=== PATIENT | female | born 2000 | race Caucasian/White ===

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

== ENCOUNTER 2022-06-20 13:56 | Emergency (ER) | payer OTHER, SELFPAY ==
[2022-06-20 15:31] VITALS: BP 123/64; PULSE 96; RESP 16; TEMP 37.9; O2SAT 100; BMI 30.7
[2022-06-20 16:02] LABS: IDNOW Serial# 6674DD1D; Strep A Nucleic Acid Negative (Negative)
[2022-06-20 16:28] LABS: Influenza A PCR NEGATIVE (Negative); Influenza B PCR NEGATIVE (Negative); Resp Syncy Virus RNA Qual PCR NEGATIVE (Negative); SARS COV2 PCR INHOUSE NEGATIVE (Negative)
--- NOTE | 2022-06-20 16:29 | ED.URI ---
HPI - URI/Sore Throat General Chief Complaint: Upper Respiratory Symptoms Stated Complaint: sore throat pain going into ear Time Seen by Provider: 06/20/22 16:01 Source: patient and family Mode of arrival: ambulatory Limitations: no limitations History of Present Illness HPI Narrative: 22-year-old female who is currently 5 weeks who reports she is going to follow up with OB in the next week with presenting to the ER with complaints of subjective fevers, chills, fatigue, malaise, ear pain, sore throat with a nonproductive cough for the past 2-3 days worse today. She denies recent travel or sick contacts. She denies any measured fevers at home, dizziness, headaches, neck pain/stiffness, trouble swallowing or breathing, chest pain or shortness of breath, dyspnea on exertion, orthopnea, palpitations, paresthesias, nausea/vomiting/diarrhea constipation, black or bloody stools, abdominal pain, flank pain, dysuria, hematuria, abnormal vaginal discharge, vaginal bleeding, rashes, recent falls or trauma or any other symptoms complaints or concerns at this time. MD elicited complaint: fever, cough, sore throat, rhinorrhea and nasal congestion Onset (ago): day(s) (2-3 days ) Consistency: constant Severity: mild Description of mucous: clear, watery and yellow Able to tolerate fluids by mouth: Yes Exacerbating factors: swallowing Relieving factors: nothing Associated symptoms: fever, chills, myalgias, rhinorrhea, nasal congestion, sore throat and cough Treatments prior to arrival: none Related Data Home Medications Medication Instructions Recorded Confirmed vit no.95-ferrous 1 tab PO DAILY 11/07/21 fumarate 28 mg-folic acid 800 mcg tablet () Previous Rx's Medication Instructions Recorded nitrofurantoin 100 mg PO BID 5 days #10 caps 11/20/21 monohydrate/macrocrystals 100 mg capsule (Macrobid) amoxicillin 875 mg-potassium 1 tab PO BID 10 days #20 tabs 06/20/22 clavulanate 125 mg tablet Allergies Allergy/AdvReac Type Severity Reaction Status Date / Time montelukast [From [facility]] Allergy Intermediate PALPITAITIONS, Verified 11/07/21 11:26 HALLUCINATES Review of Systems Review of Systems: Constitutional : + fever/chills/fatigue/malaise, No Weight loss, No Night Sweats ENT/Mouth : No Hearing loss, + Ear Pain, + Nasal Congestion, No Sinus Pain, No Hoarseness, + sore throat, + Rhinorrhea, No Swallowing Difficulty Eyes: No Eye Pain, No Swelling, No Redness, No Foreign Body, No Discharge, No Vision Changes Cardiovascular : No Chest Pain, No SOB, No Dyspnea on Exertion, No Orthopnea, No Edema, No Palpitations Respiratory : + Cough, No Sputum, No Wheezing, No Smoke Exposure, No Dyspnea Gastrointestinal : No Nausea, No Vomiting, No Diarrhea, No Constipation, No abdominal Pain, No Hematochezia, No Melena Genitourinary : no irregular bleeding, No Dysuria, No Urinary Frequency, No Hematuria, No Urinary Incontinence, No Urgency, No Flank Pain, No Urinary Flow Changes, No Hesitancy Musculoskeletal : No joint pain, + Myalgias, No Joint Swelling Skin : No Skin Lesions, No rash Neuro : No Weakness, No Numbness, No Paresthesias, No Loss of Consciousness, No Dizziness, No Headache Psych : No Anxiety/Panic, No Depression, No SI/HI/AH/VH, No Social Issues, Heme/Lymph: No Bruising, No Bleeding,No Lymphadenopathy Endocrine : No Polyuria, No Polydipsia, No Temperature Intolerance Yes all other systems are reviewed and are negative [facility] Past Medical History Attestation statement: The following information was validated with the patient. Source: old records reviewed, obtained from family and nursing notes reviewed Medical History Asthma Depression with anxiety PTSD (post-traumatic stress disorder) Surgical History History of hip surgery Social History Social History Alcohol intake: never Patient Tobacco Use Status: Current everyday Tobacco user Substance Use Type: Marijuana Advance Directives: No Advance Directives Information Provided: No Sexual orientation: Straight/Heterosexual Gender identity: Female Physical Exam Vital Signs: Vital Signs: Last Vital Signs Temp 100.3 F 06/20/22 15:31 Pulse 96 06/20/22 15:31 Resp 16 06/20/22 15:31 BP 123/64 06/20/22 15:31 Pulse Ox 100 06/20/22 15:31 O2 Del Method 06/20/22 15:31 BMI result Body Mass Index 30.7 Vital signs reviewed. Blood pressure normal. Pulse normal. Respiration normal. Oxygen normal. Temperature 100.3 Appearance: Alert. Oriented X3. No acute distress. Head: Normal external exam. Normocephalic. Atraumatic. Eyes: PERRLA. EOMI. Conjunctiva and sclera normal. Eyelids normal. ENT: EAC normal. TM's Normal. Soft and hard palate within normal limits. Posterior pharynx/tonsils erythematous no obvious exudate is noted. Uvula midline. Moist mucous membranes. No lesions/ulcerations or masses noted on the tongue. Normal voice. No trismus noted. No drooling noted. No muffled voice noted. Neck: Normal inspection. Neck supple. FROM. + anterior cervical adenopathy. Thyroid Normal. No meningeal signs. CVS: Normal heart rate and rhythm. Heart sound normal. Pulses normal throughout. No murmurs/rales/gallops. Respiratory: No respiratory distress. Painless inspiration. Breath sounds normal. No wheezes/rales/rhonchi noted. Chest nontender. No accessory muscle usage noted or decreased air movement noted. Abdomen: Soft and nontender. Back: Full range of motion noted. Nontender. Skin: Skin warm and dry. Normal skin color. Normal skin turgor. No rashes/lesions/lacerations noted. Extremities: Extremities exhibit normal range of motion and nontender. Neuro: Oriented X 3. No motor deficit. No sensory deficit. Reflexes normal. Normal steady gait. No focal neuro deficits noted. CN's II-XII intact bilaterally? Vascular: + radial pulses. Normal cap refill. No cyanosis noted to upper extremity nails Course Course Course Narrative: 22-year-old female who is currently 5 weeks who reports she is going to follow up with OB in the next week with presenting to the ER with complaints of subjective fevers, chills, fatigue, malaise, ear pain, sore throat with a nonproductive cough for the past 2-3 days worse today. This patient presents with acute cough, most consistent with pharyngitis. Differential diagnosis includes influenza/COVID or otitis media. Presentation not consistent with acute bacterial pneumonia, asthma, transient airway hyperresponsiveness. Presentation not consistent with chronic causes of cough (including GERD, asthma, postnasal discharge, medication side effect, CHF, lung cancer or mass). Patient negative for pharyngitis. Although on exam patient is febrile and having sore throat therefore will treat for bacterial pharyngitis. If patient negative for COVID/RSV/flu she can be discharged instructions follow up with her PCP. Patient understands agrees with this plan. Medications Administered Discontinued Medications Generic Name Dose Route Start Last Admin Trade Name Freq PRN Reason Stop Dose Admin Acetaminophen 975 mg 06/20/22 16:28 06/20/22 16:45 Acetaminophen 325 Mg Tablet PO 06/20/22 16:29 975 mg ONCE ONE Administration Medical Decision Making Lab Data MDM Lab Attestation statement: I reviewed the patient's lab results. Labs: Lab Results 06/20/22 06/20/22 Range/Units 15:45 15:45 Influenza Type A (PCR) NEGATIVE (Negative) Influenza Type B (PCR) NEGATIVE (Negative) RSV RNA Qual (PCR) NEGATIVE (Negative) SARS-CoV-2 RNA (RT-PCR) NEGATIVE (Negative) S. pyogenes GrpA JAMEL Negative (Negative) Independent Historian Clinical information obtained from an independent historian. History obtained from or confirmed by: Friend External Record Review External record reviewed: Inpatient record, Office record, Outpatient record, Prior outpatient labs, Prior outpatient radiology, Primary care record and Outside ED record Discharge Plan Discharge Clinical Impression: Acute bacterial pharyngitis Patient Disposition: Home, Self-Care Instructions: Pharyngitis (ED) Additional Instructions: You have pending COVID/RSV/flu swab. If it is positive you will be contacted today. Prescriptions: New amoxicillin-pot clavulanate 875-125 mg tablet 1 tab PO BID 10 Days Qty: 20 0RF No Action nitrofurantoin monohyd/m-cryst [Macrobid] 100 mg capsule 100 mg PO BID 5 Days Qty: 10 0RF PNV cmb#95-ferrous fumarate-FA [] 28 mg iron- 800 mcg tablet 1 tab PO DAILY Referrals: Radha Owen MD [Primary Care Provider] - 2 days Stand Alone Forms: Work/School Release Interventions: ED Discharge Assessment Last Done: 06/20/22 17:22 Discharge Date/Time: 06/20/22 17:22
[2022-06-20] MEDS: Acetaminophen 325 MG TABLET 975 MG PO (16:45)
== END 2022-06-20 17:22 | disposition home or self-care (01) ==
PROVIDERS: Emergency Provider Emergency Medicine Emergency Medical Services; PCP Internal Medicine
DX: J02.9 Acute pharyngitis, unspecified (principal); M79.10 Myalgia, unspecified site; R50.9 Fever, unspecified; F17.210 Nicotine dependence, cigarettes, uncomplicated; Z20.822 Contact with and (suspected) exposure to COVID-19; Z71.6 Tobacco abuse counseling; Z79.899 Other long term (current) drug therapy
CPT/HCPCS: 0241U; 87651; 99283

== ENCOUNTER 2022-06-23 14:00 | Emergency (ER) | payer MEDICAID, SELFPAY ==
[2022-06-23 14:07] VITALS: BP 122/77; PULSE 111; RESP 16; TEMP 37.1; O2SAT 100; BMI 30.7
--- NOTE | 2022-06-23 14:08 | ED_ITS ---
HPI - Fever General Chief Complaint: Fever <MANUEL Siddiqui - Last Filed: 06/23/22 14:13> Stated Complaint: returning for worsening symptoms, fever <MANUEL Siddiqui - Last Filed: 06/23/22 14:13> Time Seen by Provider: 06/23/22 17:15 <MANUEL Siddiqui - Last Filed: 06/23/22 14:13> Source: patient and family <Brenda Fong NP - Last Filed: 06/23/22 18:57> Mode of arrival: ambulatory <Brenda Fong NP - Last Filed: 06/23/22 18:57> Limitations: no limitations <Brenda Fong NP - Last Filed: 06/23/22 18:57> History of Present Illness HPI Narrative: 22-year-old female recently diagnosed as , 5 weeks, presents to the emergency department with her mother for complaints of fevers, cough and sore throat. She was seen 3 days ago here in the emergency department and diagnosed with acute bacterial pharyngitis and discharged home with antibiotics. She states she has continued to have fevers over the last 3 days with T-max 103.8?, managed with Tylenol at home with good result. She is concerned that the antibiotics are not working. She reports intermittent nausea and vomiting which he attributes to being newly . She denies any shortness of breath, chest pain, chills, weakness, headache, or vision changes. <Brenda Fong NP - Last Filed: 06/23/22 18:57> Onset (ago): day(s) <Brenad Fong NP - Last Filed: 06/23/22 18:57> Exacerbating factors: nothing <Brenda Fong NP - Last Filed: 06/23/22 18:57> Relieving factors: acetaminophen <Brenda Fong NP - Last Filed: 06/23/22 18:57> Associated symptoms: denies other symptoms <Brenda Fong NP - Last Filed: 06/23/22 18:57> Treatments prior to arrival fever: acetaminophen <Brenda Fong NP - Last Filed: 06/23/22 18:57> Related Data Home Medications: Home Medications Medication Instructions Recorded Confirmed vit no.95-ferrous 1 tab PO DAILY 11/07/21 fumarate 28 mg-folic acid 800 mcg tablet () Previous Rx's Medication Instructions Recorded nitrofurantoin 100 mg PO BID 5 days #10 caps 11/20/21 monohydrate/macrocrystals 100 mg capsule (Macrobid) amoxicillin 875 mg-potassium 1 tab PO BID 10 days #20 tabs 06/20/22 clavulanate 125 mg tablet <MANUEL Siddiqui - Last Filed: 06/23/22 14:13> Allergies/Adverse Reactions: Allergies Allergy/AdvReac Type Severity Reaction Status Date / Time montelukast [From SINGULAIR] Allergy Intermediate PALPITAITIONS, Verified 11/07/21 11:26 HALLUCINATES <MANUEL Siddiqui - Last Filed: 06/23/22 14:13> Review of Systems Review of Systems: In addition to documented HPI above, the additional ROS was obtained: Constitutional: No Weight loss, No Fever, No Chills ENT/Mouth: No Ear Pain, No Nasal Congestion, No Sinus Pain, No Hoarseness No Rhinorrhea, No Swallowing Difficulty Cardiovascular: No Chest Pain, No SOB Respiratory: No Cough, No Sputum, No Wheezing Gastrointestinal: No Nausea, No Vomiting, No Diarrhea, No Constipation, No Abdominal pain Genitourinary: No Dysuria, No Urinary Frequency, No Hematuria, No Urinary Incontinence/retention, No Urgency, No Flank Pain Musculoskeletal: No joint pain, No Myalgias, No Joint Swelling Skin: No Skin Lesions, No rash Neuro: No Weakness, No Numbness, No Paresthesias <Brenda Fong NP - Last Filed: 06/23/22 18:57> Yes all other systems are reviewed and are negative <Brenda Fong NP - Last Filed: 06/23/22 18:57> [facility] Past Medical History Attestation statement: The following information was validated with the patient. <Brenda Fong NP - Last Filed: 06/23/22 18:57> Source: old records reviewed and obtained from family <FLOR Henriquez Last Filed: 06/23/22 18:57> Medical History: Medical History Asthma Depression with anxiety PTSD (post-traumatic stress disorder) <MANUEL Siddiqui - Last Filed: 06/23/22 14:13> Surgical History: Surgical History History of hip surgery <MANUEL Siddiqui - Last Filed: 06/23/22 14:13> Social History Social History: Social History Alcohol intake: never Patient Tobacco Use Status: Current everyday Tobacco user Substance Use Type: Marijuana Advance Directives: No Advance Directives Information Provided: No Sexual orientation: Straight/Heterosexual Gender identity: Female <MANUEL Siddiqui - Last Filed: 06/23/22 14:13> Physical Exam Vital Signs: Vital Signs: Last Vital Signs Temp 97.4 F 06/23/22 17:12 Pulse 105 H 06/23/22 17:12 Resp 18 06/23/22 17:12 BP 133/55 L 06/23/22 17:12 Pulse Ox 96 06/23/22 17:12 O2 Del Method 06/23/22 17:12 BMI result Body Mass Index 30.7 <MANUEL Siddiqui - Last Filed: 06/23/22 14:13> Vital Signs: Last Vital Signs Temp 97.4 F 06/23/22 17:12 Pulse 105 H 06/23/22 17:12 Resp 18 06/23/22 17:12 BP 133/55 L 06/23/22 17:12 Pulse Ox 96 06/23/22 17:12 O2 Del Method 06/23/22 17:12 BMI result Body Mass Index 30.7 <Brenda Fong NP - Last Filed: 06/23/22 18:57> Nursing notes and vital signs reviewed. GENERAL APPEARANCE: A&0 x 4, generally well appearing, no acute distress HENMT: Normal to inspection, atraumatic, face symmetrical. Normal external ears, nose, and oropharynx clear. EYE: PERRLA, EOM intact, structures appear normal NECK: Supple without lymphadenopathy. No stiffness or restricted ROM. CHEST: Normal to inspection HEART: Normal rate and regular rhythm, normal S1/S2, no M/R/G LUNGS: LS CTA, moving air well. Able to speak in complete sentences. No crackles, wheezes, or rhonchi auscultated ABDOMEN: Soft, nontender, nondistended. Normal bowel sounds noted BACK: No CVAT, no obvious deformity EXTREMITIES: Moving all extremities without difficulty. No cyanosis, clubbing, or edema. Normal capillary refill. NEUROLOGICAL: Alert and oriented, moving all 4 extremities with equal strength. CN not formally tested but appearing grossly intact. Observed to ambulate with normal gait. Cognition normal SKIN: Warm and dry without any lesions, rash, or visible sores PSYCH: Cooperative, normal affect, normal thought process <Brenda Fong NP - Last Filed: 06/23/22 18:57> Course Course Course Narrative: RME-14:15pm 22yoF who is 5 weeks who is presenting to the ED c c/o Fevers up to 101.0, headaches, nasal congestion and cough x 1 week. Taking otc tylenol for her fevers. Reports associated N/V. On medications for yeast infection given by [facility]. On amoxicillin for bacterial pharyngitis x 3 days. Denies any abd pain, CP, SOB, diarrhea, dysuria, vaginal bleeding or any OBGYN related complaints or any other symptoms complaints or concerns at this time. Plan: COVID/RSV/flu, UA. Patient will be sent back to the waiting room to be evaluated [facility]. <MANUEL Siddiqui - Last Filed: 06/23/22 14:13> Medical Decision Making Medical Decision Making MDM Narrative: 22-year-old female recently diagnosed as , 5 weeks, presents to the emergency department with her mother for complaints of fevers, cough and sore throat. She was seen 3 days ago here in the emergency department and diagnosed with acute bacterial pharyngitis and discharged home with antibiotics. She states she has continued to have fevers over the last 3 days with T-max 103.8?, managed with Tylenol at home with good result. Serology negative for influenza, RSV, COVID, and mono. Urine negative for infection. Blood work unremarkable. Chest x-ray recommended and patient declined due to new and history of miscarriage. History and physical exam consistent with acute viral upper respiratory infection. Patient is a for discharge at this time with recommendation to manage temperature and discomfort with [id number] Tylenol with dosing per packaging. HPI, PE, diagnostics, and plan discussed with patient and family with no unanswered questions at this time. Patient educated to return to the emergency department with new, worsening, or concerning emergent symptoms. Recommended to follow-up with her primary care provider for further treatment and management. *Refer to Course for additional information on consultations, diagnostic interpretation, consultations, emergency department stay, conversations with patient and family, shared decision making with patient, and more information on medical decision making* <Brenda Fong NP - Last Filed: 06/23/22 18:57> Lab Data Result Diagrams: 06/23/22 17:45 06/23/22 17:46 <MANUEL Siddiqui - Last Filed: 06/23/22 14:13> Labs: Lab Results 06/23/22 06/23/22 06/23/22 Range/Units 16:00 16:00 17:45 WBC 17.4 H (4.8-10.8) X10*3/uL RBC 4.34 (4.20-5.50) X10*6/uL Hgb 12.3 (12.0-16.0) g/dl Hct 37.7 (37.0-47.0) % MCV 86.9 (80.0-98.0) fL MCH 28.3 (27.0-33.0) pg MCHC 32.6 (31.0-35.0) g/dl RDW 13.1 (11.0-16.0) % Plt Count 327 (160-400) X10*3/uL MPV 10.4 (9.4-12.3) fL Immature Gran % (Auto) 0.4 (0.0-0.4) % Neut % (Auto) 78.5 H (45-73) % Lymph % (Auto) 15.6 L (20-40) % [place] % (Auto) 5.1 (2-11) % Eos % (Auto) 0.2 (0-4) % Baso % (Auto) 0.2 (0-2) % Lymph # (Auto) 2.7 (1.2-4.9) X10*3/uL [place] # (Auto) 0.9 (0.1-1.2) X10*3/uL Eos # (Auto) 0.0 (0.0-0.4) X10*3/uL Baso # (Auto) 0.0 (0.0-0.2) X10*3/uL Abs Immat Gran (auto) 0.07 H (0.00-0.03) X10*3/uL Absolute Neuts (auto) 13.7 H (2.0-8.3) x10*3/uL Absolute Nucleated RBC 0.000 (0.0-0.012) X10*3/uL Nucleated RBC % (auto) 0.0 (0.0-0.2) /100WBC Sodium (135-145) mmol/L Potassium (3.3-5.1) mmol/L Chloride (96-108) mmol/L Carbon Dioxide (22-29) mmol/L Anion Gap (12-20) BUN (9-16) mg/dL Creatinine (0.5-1.4) mg/dL Estim Creat Clear Calc Estimated GFR Random Glucose (60-115) mg/dL Calcium (8.4-10.2) mg/dL Magnesium (1.6-2.6) mg/dL Total Bilirubin (0.0-1.0) mg/dL AST (5-31) U/L ALT (0-31) U/L Alkaline Phosphatase (39-117) U/L Total Protein (6.5-8.0) g/dL Albumin (3.5-5.0) g/dL Beta HCG, Quant mIU/mL Urine Color Yellow Urine Appearance Clear Urine pH 6.5 (5.0-9.0) Ur Specific [place] 1.025 (1.005-1.025) Urine Protein 30 (1+) H (Neg-Trace) mg/dL Urine Glucose (UA) Negative (Negative) mg/dL Urine Ketones 15 (Negative) mg/dL Urine Blood Negative (Negative) Urine Nitrite Negative (Negative) Ur Leukocyte Esterase Negative (Negative) Urine RBC 0-2 (0-2) /HPF Urine WBC 0-5 (0-5) /HPF Ur Squamous Epith Cells 6-10 (0-2) /HPF Urine Bacteria None Seen (None Seen) Hyaline Casts 0-2 (0-2) /LPF Monoscreen (Negative) Influenza Type A (PCR) NEGATIVE (Negative) Influenza Type B (PCR) NEGATIVE (Negative) RSV RNA Qual (PCR) NEGATIVE (Negative) SARS-CoV-2 RNA (RT-PCR) NEGATIVE (Negative) 06/23/22 06/23/22 06/23/22 Range/Units 17:46 17:46 17:46 WBC (4.8-10.8) X10*3/uL RBC (4.20-5.50) X10*6/uL Hgb (12.0-16.0) g/dl Hct (37.0-47.0) % MCV (80.0-98.0) fL MCH (27.0-33.0) pg MCHC (31.0-35.0) g/dl RDW (11.0-16.0) % Plt Count (160-400) X10*3/uL MPV (9.4-12.3) fL Immature Gran % (Auto) (0.0-0.4) % Neut % (Auto) (45-73) % Lymph % (Auto) (20-40) % [place] % (Auto) (2-11) % Eos % (Auto) (0-4) % Baso % (Auto) (0-2) % Lymph # (Auto) (1.2-4.9) X10*3/uL [place] # (Auto) (0.1-1.2) X10*3/uL Eos # (Auto) (0.0-0.4) X10*3/uL Baso # (Auto) (0.0-0.2) X10*3/uL Abs Immat Gran (auto) (0.00-0.03) X10*3/uL Absolute Neuts (auto) (2.0-8.3) x10*3/uL Absolute Nucleated RBC (0.0-0.012) X10*3/uL Nucleated RBC % (auto) (0.0-0.2) /100WBC Sodium 138 (135-145) mmol/L Potassium 3.5 (3.3-5.1) mmol/L Chloride 105 (96-108) mmol/L Carbon Dioxide 23 (22-29) mmol/L Anion Gap 14 (12-20) BUN 7 L (9-16) mg/dL Creatinine 0.80 (0.5-1.4) mg/dL Estim Creat Clear Calc 124.0 Estimated GFR > 60 Random Glucose 111 (60-115) mg/dL Calcium 8.9 (8.4-10.2) mg/dL Magnesium 2.0 (1.6-2.6) mg/dL Total Bilirubin 0.3 (0.0-1.0) mg/dL AST 15 (5-31) U/L ALT 16 (0-31) U/L Alkaline Phosphatase 72 (39-117) U/L Total Protein 7.4 (6.5-8.0) g/dL Albumin 3.9 (3.5-5.0) g/dL Beta HCG, Quant 1678 mIU/mL Urine Color Urine Appearance Urine pH (5.0-9.0) Ur Specific [place] (1.005-1.025) Urine Protein (Neg-Trace) mg/dL Urine Glucose (UA) (Negative) mg/dL Urine Ketones (Negative) mg/dL Urine Blood (Negative) Urine Nitrite (Negative) Ur Leukocyte Esterase (Negative) Urine RBC (0-2) /HPF Urine WBC (0-5) /HPF Ur Squamous Epith Cells (0-2) /HPF Urine Bacteria (None Seen) Hyaline Casts (0-2) /LPF Monoscreen Negative (Negative) Influenza Type A (PCR) (Negative) Influenza Type B (PCR) (Negative) RSV RNA Qual (PCR) (Negative) SARS-CoV-2 RNA (RT-PCR) (Negative) <MANUEL Siddiqui - Last Filed: 06/23/22 14:13> Lab Results 06/23/22 06/23/22 06/23/22 Range/Units 16:00 16:00 17:45 WBC 17.4 H (4.8-10.8) X10*3/uL RBC 4.34 (4.20-5.50) X10*6/uL Hgb 12.3 (12.0-16.0) g/dl Hct 37.7 (37.0-47.0) % MCV 86.9 (80.0-98.0) fL MCH 28.3 (27.0-33.0) pg MCHC 32.6 (31.0-35.0) g/dl RDW 13.1 (11.0-16.0) % Plt Count 327 (160-400) X10*3/uL MPV 10.4 (9.4-12.3) fL Immature Gran % (Auto) 0.4 (0.0-0.4) % Neut % (Auto) 78.5 H (45-73) % Lymph % (Auto) 15.6 L (20-40) % [place] % (Auto) 5.1 (2-11) % Eos % (Auto) 0.2 (0-4) % Baso % (Auto) 0.2 (0-2) % Lymph # (Auto) 2.7 (1.2-4.9) X10*3/uL [place] # (Auto) 0.9 (0.1-1.2) X10*3/uL Eos # (Auto) 0.0 (0.0-0.4) X10*3/uL Baso # (Auto) 0.0 (0.0-0.2) X10*3/uL Abs Immat Gran (auto) 0.07 H (0.00-0.03) X10*3/uL Absolute Neuts (auto) 13.7 H (2.0-8.3) x10*3/uL Absolute Nucleated RBC 0.000 (0.0-0.012) X10*3/uL Nucleated RBC % (auto) 0.0 (0.0-0.2) /100WBC Sodium (135-145) mmol/L Potassium (3.3-5.1) mmol/L Chloride (96-108) mmol/L Carbon Dioxide (22-29) mmol/L Anion Gap (12-20) BUN (9-16) mg/dL Creatinine (0.5-1.4) mg/dL Estim Creat Clear Calc Estimated GFR Random Glucose (60-115) mg/dL Calcium (8.4-10.2) mg/dL Magnesium (1.6-2.6) mg/dL Total Bilirubin (0.0-1.0) mg/dL AST (5-31) U/L ALT (0-31) U/L Alkaline Phosphatase (39-117) U/L Total Protein (6.5-8.0) g/dL Albumin (3.5-5.0) g/dL Beta HCG, Quant mIU/mL Urine Color Yellow Urine Appearance Clear Urine pH 6.5 (5.0-9.0) Ur Specific [place] 1.025 (1.005-1.025) Urine Protein 30 (1+) H (Neg-Trace) mg/dL Urine Glucose (UA) Negative (Negative) mg/dL Urine Ketones 15 (Negative) mg/dL Urine Blood Negative (Negative) Urine Nitrite Negative (Negative) Ur Leukocyte Esterase Negative (Negative) Urine RBC 0-2 (0-2) /HPF Urine WBC 0-5 (0-5) /HPF Ur Squamous Epith Cells 6-10 (0-2) /HPF Urine Bacteria None Seen (None Seen) Hyaline Casts 0-2 (0-2) /LPF Monoscreen (Negative) Influenza Type A (PCR) NEGATIVE (Negative) Influenza Type B (PCR) NEGATIVE (Negative) RSV RNA Qual (PCR) NEGATIVE (Negative) SARS-CoV-2 RNA (RT-PCR) NEGATIVE (Negative) 06/23/22 06/23/22 06/23/22 Range/Units 17:46 17:46 17:46 WBC (4.8-10.8) X10*3/uL RBC (4.20-5.50) X10*6/uL Hgb (12.0-16.0) g/dl Hct (37.0-47.0) % MCV (80.0-98.0) fL MCH (27.0-33.0) pg MCHC (31.0-35.0) g/dl RDW (11.0-16.0) % Plt Count (160-400) X10*3/uL MPV (9.4-12.3) fL Immature Gran % (Auto) (0.0-0.4) % Neut % (Auto) (45-73) % Lymph % (Auto) (20-40) % [place] % (Auto) (2-11) % Eos % (Auto) (0-4) % Baso % (Auto) (0-2) % Lymph # (Auto) (1.2-4.9) X10*3/uL [place] # (Auto) (0.1-1.2) X10*3/uL Eos # (Auto) (0.0-0.4) X10*3/uL Baso # (Auto) (0.0-0.2) X10*3/uL Abs Immat Gran (auto) (0.00-0.03) X10*3/uL Absolute Neuts (auto) (2.0-8.3) x10*3/uL Absolute Nucleated RBC (0.0-0.012) X10*3/uL Nucleated RBC % (auto) (0.0-0.2) /100WBC Sodium 138 (135-145) mmol/L Potassium 3.5 (3.3-5.1) mmol/L Chloride 105 (96-108) mmol/L Carbon Dioxide 23 (22-29) mmol/L Anion Gap 14 (12-20) BUN 7 L (9-16) mg/dL Creatinine 0.80 (0.5-1.4) mg/dL Estim Creat Clear Calc 124.0 Estimated GFR > 60 Random Glucose 111 (60-115) mg/dL Calcium 8.9 (8.4-10.2) mg/dL Magnesium 2.0 (1.6-2.6) mg/dL Total Bilirubin 0.3 (0.0-1.0) mg/dL AST 15 (5-31) U/L ALT 16 (0-31) U/L Alkaline Phosphatase 72 (39-117) U/L Total Protein 7.4 (6.5-8.0) g/dL Albumin 3.9 (3.5-5.0) g/dL Beta HCG, Quant 1678 mIU/mL Urine Color Urine Appearance Urine pH (5.0-9.0) Ur Specific [place] (1.005-1.025) Urine Protein (Neg-Trace) mg/dL Urine Glucose (UA) (Negative) mg/dL Urine Ketones (Negative) mg/dL Urine Blood (Negative) Urine Nitrite (Negative) Ur Leukocyte Esterase (Negative) Urine RBC (0-2) /HPF Urine WBC (0-5) /HPF Ur Squamous Epith Cells (0-2) /HPF Urine Bacteria (None Seen) Hyaline Casts (0-2) /LPF Monoscreen Negative (Negative) Influenza Type A (PCR) (Negative) Influenza Type B (PCR) (Negative) RSV RNA Qual (PCR) (Negative) SARS-CoV-2 RNA (RT-PCR) (Negative) <Brenda Fong, MARKET ANALYSIS DIRECTOR - Last Filed: 06/23/22 18:57> Discharge Plan Discharge Clinical Impression: Upper respiratory infection, viral <MANUEL Siddiqui - Last Filed: 06/23/22 14:13> Patient Disposition: Home, Self-Care <MANUEL Siddiqui - Last Filed: 06/23/22 14:13> Instructions: Upper Respiratory Infection (ED) <MANUEL Siddiqui - Last Filed: 06/23/22 14:13> Prescriptions: No Action nitrofurantoin monohyd/m-cryst [Macrobid] 100 mg capsule 100 mg PO BID 5 Days Qty: 10 0RF amoxicillin-pot clavulanate 875-125 mg tablet 1 tab PO BID 10 Days Qty: 20 0RF PNV cmb#95-ferrous fumarate-FA [] 28 mg iron- 800 mcg tablet 1 tab PO DAILY <MANUEL Siddiqui - Last Filed: 06/23/22 14:13> Referrals: [facility] [Provider Group] [facility] [Provider Group] [facility] [Provider Group] Radha Owen MD [Primary Care Provider] - <MANUEL Siddiqui - Last Filed: 06/23/22 14:13> Print Language: [place] Citizen <MANUEL Siddiqui - Last Filed: 06/23/22 14:13>
[2022-06-23 16:07] LABS: Appearance Urine Clear; Color Urine Yellow; Glucose Urine UA Negative (Negative); Leukocyte Esterase Urine Negative (Negative); Nitrite Urine Negative (Negative); PH 6.5 (5.0-9.0); Specific Gravity - Urine 1.025 (1.005-1.025); UMIC TRIGGER UACC YES; Urine Blood Negative (Negative); Urine Ketones 15 mg/dL (Negative); Urine Protein 30 (1+) mg/dL (Neg-Trace)
[2022-06-23 16:10] LABS: Bacteria Urine None Seen (None Seen); Hyaline Casts Urine 0-2 /LPF (0-2); RBC Urine 0-2 /HPF (0-2); WBC Urine 0-5 /HPF (0-5)
[2022-06-23 16:57] LABS: Influenza A PCR NEGATIVE (Negative); Influenza B PCR NEGATIVE (Negative); Resp Syncy Virus RNA Qual PCR NEGATIVE (Negative); SARS COV2 PCR INHOUSE NEGATIVE (Negative)
[2022-06-23 17:12] VITALS: BP 133/55; PULSE 105; RESP 18; TEMP 36.3; O2SAT 96
[2022-06-23 17:50] LABS: MANUAL DIFF FLAG NO
[2022-06-23 17:51] LABS: Basophils Percent Auto 0.2 % (0-2); Eosinophils Percent Auto 0.2 % (0-4); Hematocrit 37.7 % (37.0-47.0); Hemoglobin 12.3 g/dl (12.0-16.0); Imm Gran Abs Auto 0.07 X10*3/uL (0.00-0.03); Imm Gran Pct Auto 0.4 % (0.0-0.4); Lymphocytes Absolute Auto 2.7 X10*3/uL (1.2-4.9); Lymphocytes Percent Auto 15.6 % (20-40); Mean Corpuscular HGB Conc 32.6 g/dl (31.0-35.0); Mean Corpuscular Hemoglobin 28.3 pg (27.0-33.0); Mean Corpuscular Volume 86.9 fL (80.0-98.0); Mean Platelet Volume 10.4 fL (9.4-12.3); Monocytes Absolute Auto 0.9 X10*3/uL (0.1-1.2); Monocytes Percent Auto 5.1 % (2-11); Neutrophils Absolute Auto 13.7 x10*3/uL (2.0-8.3); Neutrophils Percent Auto 78.5 % (45-73); Platelet Count 327 X10*3/uL (160-400); Red Blood Count 4.34 X10*6/uL (4.20-5.50); Red Cell Distribution Width 13.1 % (11.0-16.0); White Blood Count 17.4 X10*3/uL (4.8-10.8)
[2022-06-23 18:04] LABS: Monotest Negative (Negative)
[2022-06-23 18:09] LABS: Alanine Aminotransferase 16 U/L (0-31); Albumin Level 3.9 g/dL (3.5-5.0); Alkaline Phosphatase 72 U/L (39-117); Anion Gap 14 (12-20); Aspartate Amino Transferase 15 U/L (5-31); Bilirubin Total 0.3 mg/dL (0.0-1.0); Blood Urea Nitrogen 7 mg/dL (9-16); Calcium 8.9 mg/dL (8.4-10.2); Carbon Dioxide 23 mmol/L (22-29); Chloride 105 mmol/L (96-108); Estimated Glomerular Filt Rate > 60; Glucose Random 111 mg/dL (60-115); Potassium 3.5 mmol/L (3.3-5.1); Sodium 138 mmol/L (135-145); Total Protein 7.4 g/dL (6.5-8.0)
[2022-06-23 18:16] LABS: HCG Quantitative 1678 mIU/mL
== END 2022-06-23 18:54 | disposition home or self-care (01) ==
PROVIDERS: Physician Assistant Medical; Emergency Provider Internal Medicine; PCP Internal Medicine
DX: O99.511 Diseases of the respiratory system complicating pregnancy, first trimester (principal); R50.9 Fever, unspecified; J06.9 Acute upper respiratory infection, unspecified; Z3A.01 Less than 8 weeks gestation of pregnancy; Z20.828 Contact with and (suspected) exposure to other viral communicable diseases; Z20.822 Contact with and (suspected) exposure to COVID-19; Z79.899 Other long term (current) drug therapy
CPT/HCPCS: 0241U; 36415; 80053; 81001; 83735; 84702; 85025; 86308; 99283

== ENCOUNTER 2023-08-14 13:46 | Outpatient (REF) | payer OTHER, SELFPAY ==
[2023-08-15 03:41] LABS: CT PCR NOT DETECTED (Not Detect.); NG PCR NOT DETECTED (Not Detect.)
[2023-08-15 16:13] LABS: BV Int Neg Control Negative (Negative); BV Int Pos Control Positive (Positive)
== END 2023-08-14 13:47 | disposition home or self-care (01) ==
LOC: HO.LAB 13:46
PROVIDERS: PCP Physician Assistant; Visit Provider Advanced Practice Midwife
DX: Z01.419 Encounter for gynecological examination (general) (routine) without abnormal findings (principal); B37.31 Acute candidiasis of vulva and vagina; N92.1 Excessive and frequent menstruation with irregular cycle; Z20.2 Contact with and (suspected) exposure to infections with a predominantly sexual mode of transmission; Z97.5 Presence of (intrauterine) contraceptive device; Z79.899 Other long term (current) drug therapy
CPT/HCPCS: 0353U; 87480; 87510; 87660; 99212

== ENCOUNTER 2023-08-14 13:46 | Outpatient (AMB) | payer OTHER, SELFPAY ==
[2023-08-14 13:47] VITALS: BMI 35.5
--- NOTE | 2023-08-14 13:47 | MHC.OFFVIS ---
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 Allergies montelukast [From SINGULAIR] Allergy (Intermediate, Verified 08/14/23 13:48) PALPITAITIONS, HALLUCINATES Medication List - Last Reconciled 08/14/23 by Izabel Valenzuela CNM etonogestrel (Nexplanon) subdermal Is last menstrual period known: Yes (unsure date since patient implanted (Nexplanon)) Do you need a note to return to daycare/school/sports/work: No HPI vag irritation HPI Details Patient is here because she thinks she has a yeast infection at for she said she thought she had had several since she delivered but really this is the 1st she had a baby in February on 02/26/2023 at [facility] she was delivered on her due date she had some leaking of fluid the day before and she was 1 cm and not changing and she says that they stripped her membranes and then she went into labor and it was a long hard labor but she delivered on her due date at 04:00. She said she also had been before that and miscarried at 5 months her baby was not growing and she was throwing up all the time. She had the Nexplanon inserted at [facility] right before she was discharged on the 2nd day after having her baby so she thinks it was inserted on the 02/28/2023. It is her 2nd 1 she had 1 before both of the pregnancies. She has been itching and burning for about a week now. She is exclusively and pumping. [facility] Medical History PTSD (post-traumatic stress disorder) Depression with anxiety Asthma Surgical History History of hip surgery Social History Alcohol intake: never Patient Tobacco Use Status: Current everyday Tobacco user Substance Use Type: Marijuana Sexual orientation: Straight/Heterosexual Gender identity: Female Female Reproductive History Menstrual Age of Menarche: 14 Duration of menses: 3-5 days control method: implanted Total pregnancies: 2 Full term: 1 (Delivered 02/26/2023,) Physical Exam Vital Signs: BMI result Body Mass Index 35.5 Other: Labia minora slightly reddened and irritated consistent with yeast infection. Vagina deep dark pink consistent with possible yeast with light menses and yeast and lactating. Cervix long close thick mobile nontender uterus midposition difficult to feel entirely nontender. Light menses present. Some white curds visible covered by menses External Female Exam: normal external appearance and normal appearance of the urethra Speculum Exam - Vagina: normal appearance of the vagina and normal vaginal discharge Speculum Exam - Cervix: normal appearance of the cervix and Cervical os closed Assessment & Plan Assessment & Plan (1) Yeast infection involving the vagina and surrounding area: Comment: Teaching done Rx with Monistat if no relief in 3 d, may treat with Diflucan. Code(s): B37.31 - Acute candidiasis of vulva and vagina (2) Breakthrough bleeding on Nexplanon: Comment: Spotting light menses today. Patient believes Nexplanon was inserted 2 days 02/28/2023 at [facility]. Code(s): N92.1 - Excessive and frequent menstruation with irregular cycle; Z97.5 - Presence of (intrauterine) contraceptive device (3) Cervical cancer screening: Comment: Patient believes she had a normal negative Pap about 6 weeks at [facility] March 2023. Code(s): Z12.4 - Encounter for screening for malignant neoplasm of cervix Plan ---I reviewed her symptoms we reviewed what she may have done alleviate symptoms. I reviewed contributing factors to yeast infection including clothing that may be a little tight or does not permit air to pass to the vulva well, including non cotton underwear, nylon and polyester type workout clothes and yoga pants, use of panty liners pads for periods etc. My recommendations include use of the medication that we decided upon, allowing air to her vulva as much as possible including wearing cotton underwear and possibly no underwear at night when possible. Any other contributing factors were explored. I encouraged her not to scratch. I reviewed what to do when she feels symptoms first starting, (re-double her efforts at allowing air to the area.) Discussed self-care in general recommend air to her vulva as much as possible though she has been using panty liners a little bit because of the yeast discharge. She is also bleeding lightly today like menses. She is happy with the Nexplanon. Discussed that anything. is possible with the Nexplanon in terms the of bleeding profile and also wi return of menses at some point, even while , though usually more when weaning or feeding less. Offered both Monistat and Diflucan she is content with the Monistat but I did offer a prescription for the Diflucan in case it has not better in about 3 days because that will be on the weekend.. Orders: Orders CT NG by PCR Today Z01.419 - Encounter for gynecological examination (general) (routine) without abnormal findings Bacterial Vaginosis Panel Today Z20.2 - Contact with and (suspected) exposure to infections with a predominantly sexual mode of transmission Medications: New miconazole nitrate 2% (Miconazole-7) 1 appful vaginal BEDTIME 7 days 45 grams 1RF fluconazole may repeat second dose 72 hrs after first dose if symptoms persist 150 mg PO Q3D 2 doses 2 tabs 0RF Coding Level of Care Code Est Pt Level 3 (50927) Diagnoses Yeast infection involving the vagina and surrounding area B37.31 Breakthrough bleeding on Nexplanon N92.1; Z97.5 Cervical cancer screening Z12.4
== END 2023-08-14 14:49 | disposition home or self-care (01) ==
LOC: HO.HWSM 13:47
PROVIDERS: PCP Physician Assistant; Visit Provider Advanced Practice Midwife
DX: B37.31 Acute candidiasis of vulva and vagina (principal); N92.1 Excessive and frequent menstruation with irregular cycle; Z97.5 Presence of (intrauterine) contraceptive device; Z12.4 Encounter for screening for malignant neoplasm of cervix
CPT/HCPCS: 99213

== ENCOUNTER 2024-03-31 12:22 | Outpatient (AMB) | payer OTHER, SELFPAY ==
[2024-03-31 12:24] VITALS: BP 120/78; PULSE 83; O2SAT 98; BMI 34.6
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
== END 2024-03-31 12:57 | disposition home or self-care (01) ==
PROVIDERS: Visit Provider Internal Medicine
DX: Z00.00 Encounter for general adult medical examination without abnormal findings (principal); L40.9 Psoriasis, unspecified; E66.811 Obesity, class 1; Z68.34 Body mass index [BMI] 34.0-34.9, adult; L20.84 Intrinsic (allergic) eczema; F41.8 Other specified anxiety disorders; F12.90 Cannabis use, unspecified, uncomplicated; T50.995S Adverse effect of other drugs, medicaments and biological substances, sequela; Z80.51 Family history of malignant neoplasm of kidney; J45.30 Mild persistent asthma, uncomplicated; F43.10 Post-traumatic stress disorder, unspecified

== ENCOUNTER → 2024-03-31 12:22 | Outpatient (BNVA) | payer OTHER, SELFPAY | PROVIDERS: Visit Provider Internal Medicine | DX: Z00.01 Encounter for general adult medical examination with abnormal findings (principal); L40.9 Psoriasis, unspecified; L20.84 Intrinsic (allergic) eczema; F12.90 Cannabis use, unspecified, uncomplicated; F41.8 Other specified anxiety disorders; E66.811 Obesity, class 1; Z68.34 Body mass index [BMI] 34.0-34.9, adult; T50.995S Adverse effect of other drugs, medicaments and biological substances, sequela; Z80.51 Family history of malignant neoplasm of kidney; J45.30 Mild persistent asthma, uncomplicated; F43.10 Post-traumatic stress disorder, unspecified | CPT/HCPCS: 96127; 99202; 99385 ==

== ENCOUNTER 2024-04-01 10:42 | Outpatient (REF) | payer OTHER, SELFPAY ==
[2024-04-01 13:23] LABS: MANUAL DIFF FLAG NO
[2024-04-01 13:35] LABS: Basophils Percent Auto 0.4 % (0-2); Eosinophils Absolute Auto 0.2 X10*3/uL (0.0-0.4); Eosinophils Percent Auto 2.5 % (0-4); Hematocrit 41.1 % (37.0-47.0); Hemoglobin 13.1 g/dl (12.0-16.0); Imm Gran Abs Auto 0.02 X10*3/uL (0.00-0.03); Imm Gran Pct Auto 0.2 % (0.0-0.4); Lymphocytes Absolute Auto 2.6 X10*3/uL (1.2-4.9); Lymphocytes Percent Auto 30.7 % (20-40); Mean Corpuscular HGB Conc 31.9 g/dl (31.0-35.0); Mean Corpuscular Hemoglobin 28.7 pg (27.0-33.0); Mean Corpuscular Volume 89.9 fL (80.0-98.0); Mean Platelet Volume 10.9 fL (9.4-12.3); Monocytes Absolute Auto 0.5 X10*3/uL (0.1-1.2); Monocytes Percent Auto 5.4 % (2-11); Neutrophils Absolute Auto 5.1 x10*3/uL (2.0-8.3); Neutrophils Percent Auto 60.8 % (45-73); Platelet Count 312 X10*3/uL (160-400); Red Blood Count 4.57 X10*6/uL (4.20-5.50); Red Cell Distribution Width 13.1 % (11.0-16.0); White Blood Count 8.5 X10*3/uL (4.8-10.8)
[2024-04-01 13:54] LABS: Appearance Urine Clear; Color Urine Yellow; Glucose Urine UA Negative (Negative); Leukocyte Esterase Urine Negative (Negative); Nitrite Urine Negative (Negative); Specific Gravity - Urine >= 1.030 (1.005-1.025); Urine Blood Negative (Negative); Urine Ketones Negative (Negative); Urine Protein Negative (Neg-Trace)
[2024-04-01 14:15] LABS: Alanine Aminotransferase 17 U/L (0-31); Albumin Level 3.9 g/dL (3.5-5.0); Alkaline Phosphatase 105 U/L (39-117); Anion Gap 10 (12-20); Aspartate Amino Transferase 17 U/L (5-31); Bilirubin Total 0.3 mg/dL (0.0-1.0); Blood Urea Nitrogen 12 mg/dL (9-16); Calcium 9.2 mg/dL (8.4-10.2); Carbon Dioxide 24 mmol/L (22-29); Chloride 110 mmol/L (96-108); Cholesterol 110 mg/dL (<200); Estimated Glomerular Filt Rate > 60; Glucose Fasting 97 mg/dL (60-99); HDL Cholesterol 47 mg/dL (>40); LDL Cholesterol Calculated 57 mg/dL (<100); Sodium 140 mmol/L (135-145); Total Protein 6.9 g/dL (6.5-8.0); Triglycerides 34 mg/dL (<150)
[2024-04-01 14:19] LABS: TSH reflex Free T4 1.77 uIU/mL (0.32-4.0)
[2024-04-01 14:25] LABS: Vitamin B12 221 pg/mL (200-900)
[2024-04-05 15:18] LABS: Vitamin D 25-OH, D2 <4 ng/mL; Vitamin D 25-OH, D3 17 ng/mL; Vitamin D 25-OH, Total 17 ng/mL (30-100)
== END 2024-04-01 10:43 | disposition home or self-care (01) ==
LOC: HO.HMGCLDS 10:42
PROVIDERS: PCP Internal Medicine; Visit Provider Internal Medicine
DX: Z00.01 Encounter for general adult medical examination with abnormal findings (principal); L40.9 Psoriasis, unspecified; L30.9 Dermatitis, unspecified; F12.90 Cannabis use, unspecified, uncomplicated; F41.8 Other specified anxiety disorders; E66.09 Other obesity due to excess calories
CPT/HCPCS: 36415; 80053; 80061; 81003; 82306; 82607; 84443; 85025

== ENCOUNTER 2025-04-13 10:46 | Outpatient (REF) | payer OTHER, SELFPAY ==
[2025-04-13 13:19] LABS: MANUAL DIFF FLAG NO
[2025-04-13 13:42] LABS: Hematocrit 46.0 % (37.0-47.0); Hemoglobin 14.4 g/dl (12.0-16.0); Imm Gran Abs Auto 0.02 X10*3/uL (0.00-0.03); Imm Gran Pct Auto 0.2 % (0.0-0.4); Lymphocytes Absolute Auto 2.4 X10*3/uL (1.2-4.9); Mean Corpuscular HGB Conc 31.3 g/dl (31.0-35.0); Mean Corpuscular Hemoglobin 28.6 pg (27.0-33.0); Mean Corpuscular Volume 91.3 fL (80.0-98.0); NRBC Abs Auto 0.000 X10*3/uL (0.0-0.012); NRBC Pct Auto 0.0 /100WBC (0.0-0.2); Platelet Count 303 X10*3/uL (160-400); Red Blood Count 5.04 X10*6/uL (4.20-5.50); White Blood Count 10.1 X10*3/uL (4.8-10.8)
[2025-04-13 14:02] LABS: Alanine Aminotransferase 23 U/L (0-31); Albumin Level 4.4 g/dL (3.5-5.0); Alkaline Phosphatase 70 U/L (39-117); Anion Gap 10 (12-20); Aspartate Amino Transferase 26 U/L (5-31); Blood Urea Nitrogen 14 mg/dL (9-16); Calcium 9.1 mg/dL (8.4-10.2); Carbon Dioxide 22 mmol/L (22-29); Chloride 110 mmol/L (96-108); Cholesterol 118 mg/dL (<200); Estimated Glomerular Filt Rate > 60; HDL Cholesterol 38 mg/dL (>40); Potassium 4.0 mmol/L (3.3-5.1); Sodium 138 mmol/L (135-145); Total Protein 7.6 g/dL (6.5-8.0); Triglycerides 87 mg/dL (<150)
[2025-04-14 06:04] LABS: Rubeola IgG (Measles) >300.00 AU/mL
[2025-04-15 14:53] LABS: Tetanus Antitoxiod Antibody 0.34 IU/mL
[2025-04-16 02:53] LABS: TS Negative Control Passed; TS Panel A 0; TS Panel B 0; TS Positive Control Passed; TSpotTB Negative (Negative)
[2025-04-16 13:14] LABS: Vitamin D 25-OH, D2 <4 ng/mL; Vitamin D 25-OH, D3 19 ng/mL; Vitamin D 25-OH, Total 19 ng/mL (30-100)
== END 2025-04-13 10:47 | disposition home or self-care (01) ==
LOC: HO.HMGCLDS 10:46
PROVIDERS: PCP Internal Medicine; Visit Provider Internal Medicine
DX: Z00.01 Encounter for general adult medical examination with abnormal findings (principal); E66.811 Obesity, class 1; E66.09 Other obesity due to excess calories; Z68.34 Body mass index [BMI] 34.0-34.9, adult; F41.8 Other specified anxiety disorders; F12.90 Cannabis use, unspecified, uncomplicated; E55.9 Vitamin D deficiency, unspecified; F43.10 Post-traumatic stress disorder, unspecified; Z28.39 Other underimmunization status; Z79.899 Other long term (current) drug therapy; Z68.32 Body mass index [BMI] 32.0-32.9, adult
CPT/HCPCS: 36415; 80053; 80061; 82306; 84443; 85025; 86481; 86735; 86762; 86765; 86774; 86787; 96127; 99212; 99395

== ENCOUNTER 2025-04-13 10:46 | Outpatient (AMB) | payer OTHER, SELFPAY ==
[2025-04-13 10:48] VITALS: BP 106/66; PULSE 87; RESP 16; TEMP 37.2; O2SAT 98; BMI 32.4
--- NOTE | 2025-04-13 10:48 | A.OFFPC_ITS ---
Vital Signs 04/13/25 10:48 Height 5 ft 8 in Weight 213 lb 2 oz BMI 32.4 BP 106/66 Blood Pressure Location Lt brachial Position Sitting Respiration 16 Pulse 87 Pulse Source Pulse Oximeter Temp 98.9 F Temp Source Oral Pulse Oximetry (%) 98 Oxygen Delivery Method Room Air Intake Visit Reasons: PE reschedule Allergies montelukast (From [facility]) Allergy (Intermediate, Verified 03/31/24 12:24) PALPITAITIONS, HALLUCINATES Medication List - Last Reconciled 04/13/25 by Daysi Villeda MD etonogestrel (Nexplanon) subdermal Tobacco use date assessed: 03/31/24 Dental Screening Dental Screen Date: 03/31/24 HPI PE reschedule HPI Details History of Present Illness The patient is a 25-year-old female presenting for a physical examination. Anxiety and PTSD: - The patient reports that her anxiety h as been off the limits recently, particularly around her birthday. - She was feeling very worried about her baby. - She acknowledges having post-traumatic stress disorder (PTSD) but is not currently seeing a therapist, citing difficulty finding one with her health insurance. - She declines medication for anxiety be cause she is . Vitamin D Deficiency: - The patient has a history of low vitam in D and is not currently taking supplements. - She states she has not had a prescript ion for vitamins for a while. Intermittent Lower Back Pain: - The patient reports experiencing inter mittent lower back pain that radiates to the front. - She questions if the pain is related t o her menstrual period. - The pain is not constant.. Health Maintenance: - The patient's DIET AIDE visit is not up t o date. - She uses marijuana. - The patient is . 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 Social History: - Substance Use: Reports using marijuana . 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 - Family Status: She has a [id number]-[id number] baby and is . - Housing: She lives in [place]. Health Maintenance - The patient is due for an DIET AIDE visit . - Discussed influenza vaccination, which was deferred as the patient has a cold; she was advised to get it at a pharmacy once she has recovered. 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 - The patient was advised to start takin g vitamin D supplements for low levels. - Advised to increase hydration and add extra salt to her diet for symptoms of dizziness related to low blood pressure. Patient Instructions - Go to the lab to have your blood drawn today for labs and vaccine titers. - Start taking the prescribed vitamin D daily. A prescription has been sent to the [facility] in [place]. - Continue taking vitamin D until your d octor tells you to stop. - To help with your anxiety, call your [employer] company and ask for a list of therapists. - Wait until your cold is completely kenia e before getting a flu shot. You can get it from a local pharmacy. - Schedule your next physical exam at th e front office clerk. Review of Systems - General: No fever no chills - Neurological: No headaches no dizzin ess - Ear nose throat: No sore throat no hearing difficulty no ear pain - Cardiovascular: No syncope, no chest pain, no palpitations - Gastrointestinal: No nausea vomiting or diarrhea - Endocrine: No polyuria polydipsia no heat intolerance - Genitourinary: No dysuria - Skin: No new complaints Physical Exam General: Cooperative, healthy appearing, comfortable, no acute distress Orientation: Patient oriented x3 Limitations: none Head: Normal to inspection Ears: Within normal limit visually Nose: Normal external nose present Face and sinus: Normal facial exam Eyes: Appearance normal, extraocular movement intact pupils reactive Neck: Normal visual inspection and supple Respiratory: Normal respiratory effort and able to speak in complete sentences. Clear to auscultation, no stridor Cardiovascular: S1 and S2 RRR GI: Normal to inspection. Soft to palpation and nontender Skin: Turgor normal, no acute findings Neuro: Patient oriented x3, motor sensory intact, balance intact, tandem pass Extremities: Normal to inspection, no swelling in ankles or joints . [facility] Medical History Mild persistent asthma Benign focal epilepsy of childhood ADHD (attention deficit hyperactivity disorder) PTSD (post-traumatic stress disorder) Depression with anxiety Surgical History History of hip surgery Social History Housing: House Alcohol intake: never Patient Tobacco Use Status: Current everyday Tobacco user e-Cigarette/Vaping Use: Currently Using Substance Use Type: Marijuana service: No Current occupational status: unemployed Current occupational exposures/hazards: No Sexual orientation: Straight/Heterosexual Gender identity: Female Cognitive needs: No Hearing needs: No Vision needs: No Female Reproductive History Menstrual Age of Menarche: 14 Questionnaire PHQ-9 Over the last 2 weeks, how often have you been bothered by any of the following problems? 1. Little interest or pleasure in doing things: more than half the days 2. Feeling down, depressed, or hopeless: more than half the days 3. Trouble falling or staying asleep, or sleeping too much: more than half the days 4. Feeling tired or having little energy: more than half the days 5. Poor appetite or overeating: more than half the days 6. Feeling bad about yourself - or that you are a failure or have let yourself or your family down: not at all 7. Trouble concentrating on things, such as reading the newspaper or watching television: not at all 8. Moving or speaking so slowly that other people could have noticed. Or the opposite - being so fidgety or restless that you have been moving around a lot more than usual: not at all 9. Thoughts that you would be better off or of hurting yourself in some way: not at all Total score: 10 Depression Screening Interpretation: Positive Depression Screening Follow-up: Existing condition and Declines treatment Depression Screening Done: Yes 53545 - PHQ-9 Billing: Yes Source: Developed by Drs. Hilton Castellanos, Buffy Gore, Zacarias He and colleagues, with an educational albaro from [employer]. Thrive Questionnaire Date Thrive assessed: 04/07/25 I am a: Patient What is your living situation today?: I have a steady place to live Within the past 12 months, did the food you bought not last and you didn't have the money to get more?: Never true Within the past 12 months, did you worry whether your food would run out before you got money to buy more?: Sometimes True Do you have trouble paying for medicines?: No Do you have trouble getting transportation to medical appointments?: No Do you have trouble paying your heating and electricity bill?: No Do you have trouble taking care of your child, family member or friend?: No Do you have trouble with day-to-day activities such as bathing, preparing meals, shopping, managing finances, etc.?: No Are you currently unemployed and looking for a job?: No Are you interested in more education?: No Please select the resources that you would like help with: None Currently or been in a relationship where the following occur: No concerns reported THRIVE Score: 1 AUDIT C Alcohol Use Questionnaire (AUDIT-C) 1. How often do you have a drink containing alcohol?: Monthly or less 2. How many drinks containing alcohol do you have on a typical day when you are drinking?: 1 or 2 3. How often do you have six or more drinks on one occasion?: Monthly Total Score: 3 ERVIN-7 AMB Questionnaire ERVIN-7 Date ERVIN - 7 assessed: 03/31/24 Feeling nervous, anxious, or on edge: 2 = More than half the days Not being able to stop or control worryin = More than half the days Worrying too much about different things: 2 = More than half the days Trouble relaxin = Not at all Being so restless that it is hard to sit still: 0 = Not at all Becoming easily annoyed or irritable: 0 = Not at all Feeling afraid as if something awful might happen: 0 = Not at all Total ERVIN-7 score (0-4 normal; 5-9 mild; 10-14 moderate; 15-21 severe): 6 Source: Developed by Drs. Hilton Castellanos, Buffy Gore, Zacarias He and colleagues, with an educational albaro from [employer]. Physical exam (Primary Care) Vital Signs: Last Vital Signs Temp 98.9 F 04/13/25 10:48 Pulse 87 04/13/25 10:48 Resp 16 04/13/25 10:48 BP 106/66 04/13/25 10:48 Pulse Ox 98 04/13/25 10:48 Oxygen Delivery Method Room Air 04/13/25 10:48 BMI result Body Mass Index 32.4 Tobacco/Smoking Status: Tobacco use Status Tobacco use date assessed 03/31/24 04/13/25 10:55 Patient Tobacco Use Status Current everyday Tobacco 04/13/25 10:55 e-Cigarette/Vaping Use Currently Using 04/13/25 10:55 Depression Screening Interpretation: Positive Depression Screening Follow-up: Existing condition and Declines treatment Thrive Assessment: Date of Thrive Assessment Date Thrive assessed 04/07/25 04/13/25 10:55 Currently or been in a relationship where the following occur: No concerns reported Coding Level of Care Code Est Pt Level 3 (22235) Est Pt Prev Care 18-39y(76366) Diagnoses Encounter for general adult medical examination with abnormal findings Z00.01 Vitamin D deficiency E55.9 Class 1 obesity due to excess calories without serious comorbidity with body mass index (BMI) of 34.0 to 34.9 in adult E66.811; E66.09; Z68.34 Body mass index: BMI 34.0-34.9 Obesity classification: adult class 1 (BMI 30 - 34.9) Serious obesity comorbidity presence: without serious comorbidity Depression with anxiety F41.8 Marijuana use F12.90 PTSD (post-traumatic stress disorder) F43.10 Immunizations incomplete Z28.39 Additional Codes PHQ-9 - 35639 - PHQ-9 Billing: Yes ([id number]) Assessment & Plan Assessment & Plan (1) Encounter for general adult medical examination with abnormal findings: Code(s): Z00.01 - Encounter for general adult medical examination with abnormal findings Category: Medical (2) Vitamin D deficiency: Code(s): E55.9 - Vitamin D deficiency, unspecified Category: Medical (3) Obesity due to excess calories: Code(s): E66.09 - Other obesity due to excess calories Category: Medical Qualifiers: Body mass index: BMI 34.0-34.9 Obesity classification: adult class 1 (BMI 30 - 34.9) Serious obesity comorbidity presence: without serious comorbidity Qualified Code(s): E66.811 - Obesity, class 1; E66.09 - Other obesity due to excess calories; Z68.34 - Body mass index [BMI] 34.0-34.9, adult (4) Depression with anxiety: Code(s): F41.8 - Other specified anxiety disorders Category: Medical (5) Marijuana use: Code(s): F12.90 - Cannabis use, unspecified, uncomplicated Category: Social Hx (6) PTSD (post-traumatic stress disorder): Code(s): F43.10 - Post-traumatic stress disorder, unspecified Category: Medical (7) Immunizations incomplete: Code(s): Z28.39 - Other underimmunization status Category: Medical Plan Anxiety and PTSD: - The patient reports that her anxiety has been off the limits recently, particularly around her birthday. - She was feeling very worried about her baby. - She acknowledges having post-traumatic stress disorder (PTSD) but is not currently seeing a therapist, citing difficulty finding one with her health insurance. - She declines medication for anxiety because she is . Vitamin D Deficiency: - The patient has a history of low vitamin D and is not currently taking supplements. - She states she has not had a prescription for vitamins for a while. Intermittent Lower Back Pain: - The patient reports experiencing intermittent lower back pain that radiates to the front. - She questions if the pain is related to her menstrual period. - The pain is not constant.. Health Maintenance: - The patient's DIET AIDE visit is not up to date. - She uses marijuana. - The patient is . 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 Social History: - Substance Use: Reports using marijuana. 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 - Family Status: She has a [id number] baby and is . - Housing: She lives in [place]. Health Maintenance - The patient is due for an DIET AIDE visit. - Discussed influenza vaccination, which was deferred as the patient has a cold; she was advised to get it at a pharmacy once she has recovered. 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 - The patient was advised to start taking vitamin D supplements for low levels. - Advised to increase hydration and add extra salt to her diet for symptoms of dizziness related to low blood pressure. Patient Instructions - Go to the lab to have your blood drawn today for labs and vaccine titers. - Start taking the prescribed vitamin D daily. A prescription has been sent to the [facility] in [place]. - Continue taking vitamin D until your doctor tells you to stop. - To help with your anxiety, call your insurance company and ask for a list of therapists. - Wait until your cold is completely gone before getting a flu shot. You can get it from a local pharmacy. - Schedule your next physical exam at the front office clerk. . Orders: Orders Complete Blood Count Auto Diff Today E66.09 - Other obesity due to excess calories, E66.811 - Obesity, class 1, F12.90 - Cannabis use, unspecified, uncomplicated, F41.8 - Other specified anxiety disorders, F43.10 - Post- traumatic stress disorder, unspecified, Z00.01 - Encounter for general adult medical examination with abnormal findings, Z68.34 - Body mass index [BMI] 34.0- 34.9, adult Lipid Panel Today E66.09 - Other obesity due to excess calories, E66.811 - Obesity, class 1, F12.90 - Cannabis use, unspecified, uncomplicated, F41.8 - Other specified anxiety disorders, F43.10 - Post-traumatic stress disorder, unspecified, Z00.01 - Encounter for general adult medical examination with abnormal findings, Z68.34 - Body mass index [BMI] 34.0-34.9, adult Vitamin D 25-OH (D2 and D3) Today E66.09 - Other obesity due to excess calories, E66.811 - Obesity, class 1, F12.90 - Cannabis use, unspecified, uncomplicated, F41.8 - Other specified anxiety disorders, F43.10 - Post- traumatic stress disorder, unspecified, Z00.01 - Encounter for general adult medical examination with abnormal findings, Z68.34 - Body mass index [BMI] 34.0- 34.9, adult TSH reflex Free T4 Today E66.09 - Other obesity due to excess calories, E66.811 - Obesity, class 1, F12.90 - Cannabis use, unspecified, uncomplicated, F41.8 - Other specified anxiety disorders, F43.10 - Post-traumatic stress disorder, unspecified, Z00.01 - Encounter for general adult medical examination with abnormal findings, Z68.34 - Body mass index [BMI] 34.0-34.9, adult Rubeola IgG (Measles) Today Z28.39 - Other underimmunization status T Spot TB Today Z28.39 - Other underimmunization status Tetanus Antitoxiod Antibody Today Z28.39 - Other underimmunization status Comprehensive [place]. Panel Fast Today E66.09 - Other obesity due to excess calories, E66.811 - Obesity, class 1, F12.90 - Cannabis use, unspecified, uncomplicated, F41.8 - Other specified anxiety disorders, F43.10 - Post- traumatic stress disorder, unspecified, Z00.01 - Encounter for general adult medical examination with abnormal findings, Z68.34 - Body mass index [BMI] 34.0- 34.9, adult Mumps Virus IgG Antibody Today Z28.39 - Other underimmunization status Rubella IgG Antibody Today Z28.39 - Other underimmunization status Varicella IgG Antibody Today Z28.39 - Other underimmunization status Medications: New cholecalciferol (vitamin D3) 25 mcg PO DAILY 90 caps 1RF 90 days cholecalciferol (vitamin D3) 25 mcg PO DAILY 90 days 90 caps 1RF
--- OUTSIDE RECORDS SUMMARY | 2025-04-13 13:30 | XMS_ITS | Clinical Summary ---
Author Organization [employer] Address [address] [place] [address] 7 [place] [address] Care Team Providers Care Complex Manager Name Role Phone Unavailable Primary Care Provider Unavailabl e Allergies Active Allergy Reactions Criticality Noted Date Comments Gramineae Pollens 03/17/2023 Lactose 03/17/2023 Latex 03/17/2023 Montelukast Unknown 07/03/2010 Other reaction(s): Unknown Medications Vit-Fe Fumarate-FA ([facility] ) 27-0.8 MG tabletIndications :First trimester TAKE 1 TABLET BY MOUTH EVERY DAY IN THE MORNING 90 tablet 1 3 Active [facility] Sleep Aid Nighttime 25 MG tablet TAKE 1 TABLET BY MOUTH AT BEDTIME NEEDED FOR SLEEP 3 Active acetaminophen (Tylenol) 325 MG tablet Take 650 mg by mouth every 4 (four) hours if needed. 3 Active albuterol (ProAir HFA) 108 (90 Base) MCG/ACT inhaler 2 puff by inhalation route every 4 to 6 hours ;administer with spacer prn shortness of breath or wheezing 3 Active etonogestrel-elut ing 68 mg contraceptive implant Inject 68 mg into the skin. 3 Active Heartburn Relief 10 MG tablet Take 10 mg by mouth 2 times daily. 3 Active ibuprofen 800 MG tablet TAKE 1 TABLET BY MOUTH EVERY 8 HOURS NEEDED FOR PAIN WITH FOOD 3 Active Active Problems Problem Noted Date Diagnosed Date Class 1 obesity 03/17/2023 Depression 03/17/2023 Eczema 03/17/2023 EEG abnormality without seizure 03/17/2023 Severe obesity (BMI 35.0-39.9) with comorbidity ([facility]) 03/17/2023 Preventative health care 03/17/2023 Overview (03/17/2023): -next physical exam due after -eye care facilitated by -dental home is Benign focal epilepsy of childhood ([facility]) 03/2022 Overview (03/17/2023): Seizure free x years. 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 -Biopsy was thought to be aneurysmal bone cyst but the pathology was not definitive. Scleral therapy completed 07/2015. -Per note from 2018, x-rays 03/2018 were reassuring with perhaps a decrease in size, recommending follow up with repeat MRI in 6 months. She was lost to follow up and reestablished care 05/01/2021. -Visit 05/22/2021 reports x ray from 04/2021 showed more bone formation in the area where the cyst had been. There were still come radiolucencies but in general looked like there had been good treatment effect. MRI showed some persistent cystic areas. Dr. Nicloe did nt think further sclerotherapy would be of benefit but suggested kelly possibility of cryotherapy. She was referred to physical therapy first as it was not absolutely clear where her pain was coming from. She is to return to [facility] in 2 months (07/2021) s/p David therapypelvic bone Vitamin D deficiency 07/26/2021 Mild persistent asthma 12/27/2019 Overview (03/17/2023): -Continue Qvar 1 puff BID. -Albuterol prn. Nipple dermatitis 03/04/2018 Anxiety 10/27/2012 Attention deficit hyperactivity disorder 013 Lactose intolerance 10/27/2012 Immunizations Immunization Administration Dates Next Due DTaP 04/15/2006, 4,2002,08/10,2002 HPV 9-Valent 08/10/2015,12/07/2014 HPV, Quadrivalent 11/01/2013 Hep A, ped/adol, 2 dose 11/01/2013,10/27/2012 Hep B, Adolescent or Pediatric 02/25/2003,2001,2002 Hib (HbOC) 07/12/2003, 3,2002,06/15 IPV 04/15/2006, 3,2002,06/15 Influenza injectable quadriv alent IIV4 with preservative 08/10/2015 Influenza injectable quadriv alent preservative free 03/07/2021,05/11/2019,04/18/2017,05/29,06/03/2014 Influenza, IIV3, injectable 08/01/2022,0 06/23/2012,04/16/2011,07/19,05/10/2008,04/10/2007,03/25/2006 ,06/11/2005,03/20/2005 Influenza, Split (incl. morgan fied surface antigen) 05/10/2013 MMR 04/12/2003 MMRV 04/15/2006 Meningococcal MCV4P ACYW-135 05/11/2019,11/02/19 14 Pfizer Covid-19 Vaccine 12+ 09/27/2022 Pneumococcal Conjugate PCV 7 07/12/2003, 2002,2002,06/15 Tdap 12/06/2022,11/01/2013 Varicella 04/12/2003 Social History Tobacco Use Types Packs/Day Years Used Date Smoking Tobacco: Never Smokeless Tobacco: Never Tobacco Cessation:Counseling Given: Not Answered Comments Unknown Sex and Gender Information Value Date Recorded Sex Assigned at Female 04/15/2022 10:17 AM EDT Legal Sex Female 10:17 AM EDT Gender Identity Female 04/15/2022 10:17 AM EDT Sexual Orientation Straight 04/15/2022 10 :17 AM EDT Last Filed Vital Signs Vital Sign Reading Time Taken Comments Blood Pressure 102/59 06/25/2022 11:08 AM EST Pulse 95 06/25/2022 11:08 AM EST Temperature 36.7 C (98 F) 06/25/2022 11:08 AM EST Respiratory Rate 16 06/25/2022 11:08 AM EST Oxygen Saturation 96% 06/25/2022 11:08 AM EST Inhaled Oxygen Concentration - - Weight 96.9 kg (213 lb 9.6 oz) 06/25/2022 11:08 AM EST Height 168.3 cm (5' 6.25 ) 04/29/2022 1:37 PM ES T Body Mass Index 34.21 04/29/2022 1:37 PM EST Plan of Treatment Health Maintenance Due Date Last Done Comments Chlamydia and Gonorrhea Screening 2002 Depression Screening 2002 HIV Screening 2002 Lipid Panel 2002 SDOH Screening 2002 Disability Screening 2002 Alcohol/Substance Use Screening 2014 Family Planning (PISQ) 2017 Meningococcal B Vaccine (1 of 2 - Standard) 2018 Hepatitis C Screening 2020 Pneumococcal Vaccine: Pediatrics (0 to 5 Years) and At-Risk Patients (6 to 49) Years (1 of 2 - PCV) 2021 07/12/2003, 2002, 2002, Additional history exists Tobacco Screening 06/25/2023 06/25/2022 HPV/Cotest 05/22/2024 Pap Smear 05/22/2024 05/22/2023 COVID-19 Vaccine (2 - season) 2025 09/27/2022 Influenza Vaccine (#1) 2025 , 03/07/2021, 05/11/2019, Additional history exists DTaP/Tdap/Td Vaccines (8 - Td or Tdap) 12/06/2032 12/06/2022, 11/01/2013, 04/15/2006, Additional history exists Zoster Vaccines (1 of 2) 2052 RSV Patients and Patients Aged 60 years or older (1 - 1-dose 75+ series) 2077 Hepatitis B Vaccines Completed 02/25/2003, 2002, 2002 HIB Vaccines Completed 07/12/2003, 10/14, 2002, Additional history exists IPV Vaccines Completed 04/15/2006, 02/14, 2002, Additional history exists Hepatitis A Vaccines Completed 11/01/2013, 10/28/19 13 HPV Vaccines Completed 08/10/2015, 11/15, 11/01/2013 Meningococcal Vaccine Completed 05/11/2019, 014 RSV under 20 months Aged Out No longe r eligible based on patient's age to complete this topic Rotavirus Vaccines Aged Out No longer eligible based on patient's age to complete this topic Procedures Procedure Name Priority Date/Time Associated Diagnosis Comments PAP/HPV Routine 05/22/2023 from Last 3 Months or Most Recently Relevant to Health Maintenance Results * (ABNORMAL) Pap Smear (05/22/2023) Pap Epithelial cell abnormality(A ) Negative for intraephithelial lesion or malignancy, Other Comment:[facility] Historical Provider HEALTH MAINTENANCE Final Result from Last 3 Months or Most Recently Relevant to Health Maintenance Insurance [employer] C3
--- OUTSIDE RECORDS SUMMARY | 2025-04-13 13:30 | XMS_ITS | Encounter Summary ---
Author Organization [employer] Address [address] [place] [address] [address] [address] Care Team Providers Care Computer Support Technician Name Role Phone Carole Kyle MD Primary Care Provider [phone] Encounter Details Date Type Department Care Team (Late st Contact Info) Description 03/17/2023 Abstract [facility] [address] [place] [address] Carole Kyle MD [address] [place] [address] Bone cyst; Mild persistent asthma without complication; Benign focal epilepsy of childhood (CMS/HCC); Preventative health care Social History Tobacco Use Types Packs/Day Years Used Date Smoking Tobacco: Never Smokeless Tobacco: Never Comments Unknown Sex and Gender Information Value Date Recorded Sex Assigned at Female 04/15/2022 10:17 AM EDT Legal Sex Female 10:17 AM EDT Gender Identity Female 04/15/2022 10:17 AM EDT Sexual Orientation Straight 04/15/2022 10 :17 AM EDT documented as of this encounter Plan of Treatment Not on file documented as of this encounter Visit Diagnoses Diagnosis Bone cyst Unspecified cyst of bone (localized) Mild persistent asthma without complication Benign focal epilepsy of childhood (CMS/HCC) (HCC) Localization-related (focal) (partial) epilepsy and epileptic syndromes with simple partial seizures, without mention of intractable epilepsy Preventative health care Routine general medical examination at a health care facility documented in this encounter Care Teams Computer Support Technician Relationship Specialty Start Date End Date Carole Kyle MD [address] [place] [address] PCP - General Family Medicine 10/30/20 05/16/24 documented as of this encounter
== END 2025-04-13 11:12 | disposition home or self-care (01) ==
LOC: HO.HMCC 10:47
PROVIDERS: PCP Internal Medicine; Visit Provider Internal Medicine
DX: Z00.01 Encounter for general adult medical examination with abnormal findings (principal); E55.9 Vitamin D deficiency, unspecified; E66.811 Obesity, class 1; Z68.34 Body mass index [BMI] 34.0-34.9, adult; F41.8 Other specified anxiety disorders; F12.90 Cannabis use, unspecified, uncomplicated; F43.10 Post-traumatic stress disorder, unspecified; Z28.39 Other underimmunization status